=== PATIENT | female | born 1970 | race Caucasian/White ===

== ENCOUNTER 2018-02-18 13:45 | Emergency (ER) | payer BC, OTHER ==
--- NOTE | 2018-02-18 14:04 | Emergency Department Record ---
History of Present Illness - General Chief complaint: GI Bleed Stated complaint: STOMACH CRAMPING,BLOOD IN STOOL Time Seen by Provider: 02/18/18 14:00 Source: Patient Mode of Arrival: Ambulatory Limitations: No limitations - History of Present Illness Initial comments: Pt to ED with complaint of at 2AM today felt urge to have BM. In bathroom at home on toilet felt "lightheaded like I was going to pass out and I got sweaty" . Pts present in bathroom at time. Pt relates passing stool at the time but still had lower abdominal discomfort. In the AM noted bright red blood on the tissue paper after passing soft brown stool. No fever, no nausea/ vomiting. Hx of similar in past with follow up colonoscopy that was normal other than two polyps that were removed by Dr. Membreno. Hx and results per patient. MD complaint: Blood on toilet paper, Blood streaked stool Onset/Timin -: Hour(s) Severity scale (1-10): 8 Consistency: Intermittent Improves with: None Worsens with: None Context: Hemorrhoids Associated Symptoms: Abdominal pain Treatments Prior to Arrival: None - Related Data Home Medications Medication Instructions Recorded Confirmed Last Taken No Home Med [NO HOME MEDS] 02/18/18 02/18/18 Unknown Allergies Allergy/AdvReac Type Severity Reaction Status Date / Time azithromycin AdvReac Intermediate VOMITING Verified 02/18/18 13:57 Travel Screening - Travel/Exposure Within Last 30 Days Have you traveled within the last 30 days?: No - Travel/Exposure Within Last Year Have you traveled outside the [place] in the last year?: No - Additonal Travel Details Have you been exposed to anyone with a communicable illness?: No - Travel Symptoms Symptom Screening: None Review of Systems Constitutional: Denies: Chills, Fever, Night sweats Eyes: Denies: Eye pain, Vision change ENT: Denies: Congestion Respiratory: Denies: Cough, Dyspnea Cardiovascular: Denies: Arrhythmia, Chest pain Endocrine: Denies: Fatigue Gastrointestinal: Reports: As per HPI, Abdominal pain Genitourinary: Denies: Dysuria, Frequency Musculoskeletal: Denies: Back pain Skin: Denies: Rash Neurological: Denies: Abnormal gait, Seizure Psychiatric: Reports: Anxiety. Denies: Depression Hematological/Lymphatic: Denies: Anemia Past Medical History - SOCIAL HISTORY Smoking Status: Current every day smoker Alcohol Use: Occasional Drug Use: None - RESPIRATORY Hx Respiratory Disorders: Yes Hx Bronchitis: Yes (01/2016) Hx Pneumonia: Yes (20+ years ago) - CARDIOVASCULAR Hx Cardio Disorders: No - NEURO Hx Neuro Disorders: No - GI Hx GI Disorders: Yes Hx Abdominal Pain: Yes (Lower abdomen) Hx Nausea/Vomiting: Yes Hx Rectal Bleeding: Yes (09/2015) Comment:: cramping and diarrhea - Hx Genitourinary Disorders: No - ENDOCRINE Hx Endocrine Disorders: No Hx Diabetes: No Hx Thyroid Disease: No - MUSCULOSKELETAL Hx Musculoskeletal Disorders: No - PSYCH Hx Psych Problems: No - HEMATOLOGY/ONCOLOGY Hx Hematology/Oncology Disorders: No Family Medical History Any Significant Family History?: Yes Hx Alcohol Use: Father Hx Heart Disease: Mother Physical Exam - General General Appearance: Alert, Oriented x3, Cooperative Limitations: No limitations - Head Head exam: Atraumatic - Eye Eye exam: Normal appearance - ENT ENT exam: Normal exam Ear exam: Normal external inspection Nasal Exam: Normal inspection Mouth exam: Normal external inspection Teeth exam: Normal inspection Throat exam: Normal inspection - Neck Neck exam: Normal inspection - Respiratory Respiratory exam: Normal lung sounds bilaterally. negative: Rhonchi, Wheezes - Cardiovascular Cardiovascular Exam: Regular rate, Normal rhythm - GI/Abdominal GI/Abdominal exam: Soft, Normal bowel sounds. negative: Guarding, Rebound, Tenderness - Rectal Rectal exam: Other (no external hemorrhoids. + gross bright red blood on gloved finger after exam. no fissue seen. ). negative: Hemorrhoids, Normal rectal tone - exam: Deferred - Extremities Extremities exam: Normal inspection. negative: Tenderness - Back Back exam: Reports: Normal inspection - Neurological Neurological exam: Alert, CN II-XII intact, Normal gait, Oriented X3 - Psychiatric Psychiatric exam: Normal affect, Normal mood - Skin Skin exam: Normal color Course Vital Signs 02/18/18 13:52 Temperature 98.0 F Pulse Rate 91 H Respiratory 18 Rate Blood Pressure 134/86 Pulse Ox 97 - Reevaluation(s) Reevaluation #1: 02/18/18 15:21 pt seen and reviewed studies. HB 13, large stool to right colon. Has established GI for rollow up. Return as needed. Questions answered. Medical Decision Making - Management Options MDM Management: No Additional Work-up Planned - Data Complexity MDM Data: Labs Ordered and/or Reviewed, X-Ray Ordered and/or Reviewed, Independent Visualization of Image, Tracing, or Specimen - Lab Data Result diagrams: 02/18/18 14:17 02/18/18 14:17 - Radiology Data Radiology results: Image reviewed -: Radiology Exam Interpreted by Myself Disposition Disposition: Discharge Clinical Impression: Hematochezia, Constipation Disposition: Home, Self-Care Condition: (1) Good Additional Instructions: Use Miralax over santiago counter as instructed. Increase fluids. Follow up with your family doctor 2-3 days. return to the ER is needed or increased AP, fever, N/V, rectal bleeding. Forms: Patient Portal Access Quality - Quality Measures Quality Measures: N/A - Blood Pressure Screening Does Patient Have Any of the Following: No Blood Pressure Classification: Pre-Hypertensive BP Reading Systolic Measurement: 134 Diastolic Measurement: 86 Screening for High Blood Pressure: < Pre-Hypertensive BP, F/U Documented > [ [id number]] Pre-Hypertensive Follow-up Interventions: Lifestyle modifications. Lifestyle Modification: Dietary Sodium Restriction
[2018-02-18 14:33] LABS: BASO % 0.2 % (0-6); GRAN % 69.8 % (47-80); HEMATOCRIT 40.6 % (35.0-47.0); HEMOGLOBIN 13.3 gm/dl (11.6-16.0); LYMPH % 22.4 % (16-45); MEAN CELL VOLUME 91.2 fl (81-97); MEAN CORPUSCULAR HEMOGLOBIN 29.9 pg (27-33); MEAN CORPUSCULAR HGB CONC 32.8 g/dl (32-36); MEAN PLATELET VOLUME 10.7 fl (7.4-10.4); MONO % 6.6 % (0-9); PLATELET COUNT 241 K/uL (130-400); RED BLOOD COUNT 4.45 M/uL (3.80-5.40); RED CELL DISTRIBUTION WIDTH 13.4 % (11.5-14.5)
[2018-02-18 14:42] LABS: BLOOD UREA NITROGEN 17 mg/dL (6-20); CREATININE 0.8 mg/dL (0.5-0.9); EST GLOMERULAR FILTRATION RATE > 60 mL/min
[2018-02-18 14:43] LABS: TOTAL PROTEIN 7.2 g/dL (6.6-8.7)
[2018-02-18 14:45] LABS: GLUCOSE,RANDOM 108 mg/dL (74-109)
[2018-02-18 14:48] LABS: ALB/GLOB RATIO 1.5 (1.1-1.8); ALBUMIN 4.3 g/dL (4.0-5.0); ALKALINE PHOSPHATASE 122 U/L (35-104); ALT/SGPT 17 U/L (<33); AST/SGOT 16 U/L (10.0-35.0)
[2018-02-18 14:55] LABS: PROTHROMBIN TIME (PATIENT) 10.6 SECONDS (9.5-12.1)
--- NOTE | 2018-02-19 19:52 | RADIOLOGY REPORT ---
EXAM: ABDOMEN 2 VIEW HISTORY: ABDOMINAL PAIN. TECHNIQUE: Supine and upright views of the abdomen were performed. FINDINGS: There is a normal bowel gas pattern. No evidence of obstruction. Mild increased stool in the right hemicolon. No evidence of free air. No radiopaque densities. Mild dextroconvex scoliotic curvature of the lumbar spine. IMPRESSION: NO ACUTE ABDOMINAL DISEASE PROCESS. JOB NUMBER: [id number] MTDD
== END 2018-02-18 15:41 | disposition home or self-care (01) ==
LOC: ER 13:45
DX: K92.1 Melena (principal); K59.00 Constipation, unspecified; R42 Dizziness and giddiness; R10.30 Lower abdominal pain, unspecified; F17.210 Nicotine dependence, cigarettes, uncomplicated
CPT/HCPCS: 74019; 80053; 85025; 85610; 85730; 99283; 99284

== ENCOUNTER 2018-03-14 07:39 | Day surgery (SDC) | payer OTHER ==
[2018-03-14] MEDS ORDERED: LIDOCAINE 2% MDV (20MG/ML) 20ML VIAL IV ONE (07:40)
[2018-03-14] MEDS ORDERED: MIDAZOLAM HCL 2MG/2ML VIAL IV ONE (07:40)
[2018-03-14] MEDS ORDERED: PROPOFOL 10 MG/ML VIAL IV ONE (07:40)
--- NOTE | 2018-03-15 12:30 | Operative Note ---
DATE OF SURGERY: 03/14/2018 OPERATION: COLONOSCOPY. PREOPERATIVE DIAGNOSES: 1. Hematochezia. 2. Abrupt onset of abdominal pain. 3. Prior history of large tubular adenoma. POSTOPERATIVE DIAGNOSES: 1. Hemorrhoids. 2. Otherwise normal exam. PREPARATION QUALITY: Excellent. ESTIMATED BLOOD LOSS: None. SPECIMENS: None. COMPLICATIONS: None. PROCEDURE: After informed consent was obtained from the patient, she was placed in the left lateral decubitus position in the endoscopy suite, sedated and monitored by the department of anesthesia. Digital rectal examination was unremarkable. A well-lubricated [id number] colonoscope was inserted into the rectum and advanced to the cecum. Preparation quality was excellent. The cecum, terminal ileum, ascending colon, transverse colon, descending colon, sigmoid colon, and rectum were free of inflammatory changes, mass lesions, or polyps. J-turn views of the anorectum revealed hemorrhoids. The endoscope was straightened, the rectal ampulla deflated, and the endoscope was removed. RECOMMENDATIONS: At this point, the patient has symptoms that would be suggestive of a bout of ischemic colitis. It seems like she may have had this in the remote past as well. I will have her undergo testing for the possibility she has a hypercoagulable condition. At some point, she probably would benefit from a CTA. She should undergo repeat colonoscopy in 5 years. As always, thank you for allowing me to participate in the healthcare of your patients. CC: DO NOE Olvera
== END 2018-03-14 09:05 | disposition home or self-care (01) ==
LOC: HOP 07:39
PROVIDERS: ATTEND Internal Medicine Gastroenterology
DX: K92.1 Melena (principal); R10.9 Unspecified abdominal pain; Z86.010 Personal history of colon polyps; K64.8 Other hemorrhoids

== ENCOUNTER 2018-12-23 00:55 | Emergency (ER) | payer OTHER ==
[2018-12-23] MEDS ORDERED: ONDANSETRON 4 MG ODT TABLET SL ONE ×2 (01:11→01:54)
--- NOTE | 2018-12-23 01:16 | Emergency Department Record ---
History of Present Illness - General Chief complaint: Vomiting Stated complaint: VOMMITING X 2 HOURS Time Seen by Provider: 12/23/18 01:04 Source: Patient Mode of Arrival: Ambulatory Limitations: No limitations - History of Present Illness Initial comments: The patient is here due to a 2.5 hour hx of nausea, then vomiting and diarrhea. She has vomited multiple times since the onset but is feeling better now. She has had watery diarrhea minimally. There has been no AP prior to the vomiting but now her abdomen feels sore mildly. She denies any fever, chills, CP, dysuria, or bad food exposure. The patient states no one at home is ill with the same issues. MD complaint: Diarrhea, Nausea, Vomiting Onset/Timin -: Hour(s) Description of Vomiting: Food contents, Watery Description of Diarrhea: Water Associated Abdominal Pain: Yes Location: Diffuse Radiation: None Severity scale (1-10): 5 Quality: Cramping Consistency: Intermittent, Other Improves with: None Worsens with: None Associated Symptoms: Nausea/vomiting - Related Data Previous Rx's Medication Instructions Recorded Ondansetron [Zofran Odt] 4 mg SL .Q4-6H PRN #10 tab.rapdis 12/23/18 Allergies Allergy/AdvReac Type Severity Reaction Status Date / Time azithromycin AdvReac Intermediate VOMITING Verified 12/23/18 01:08 Travel Screening - Travel/Exposure Within Last 30 Days Have you traveled within the last 30 days?: No - Travel/Exposure Within Last Year Have you traveled outside the [place] in the last year?: No - Additonal Travel Details Have you been exposed to anyone with a communicable illness?: No - Travel Symptoms Symptom Screening: None Review of Systems Constitutional: Denies: Chills, Fever Eyes: Denies: Eye discharge ENT: Denies: Congestion Respiratory: Denies: Cough, Dyspnea Cardiovascular: Denies: Arrhythmia, Chest pain, Dyspnea on exertion, Edema Endocrine: Denies: Fatigue Gastrointestinal: Reports: Diarrhea, Nausea, Vomiting Genitourinary: Denies: Dysuria Musculoskeletal: Denies: Arthralgia Skin: Denies: Bruising Past Medical History - SOCIAL HISTORY Smoking Status: Current every day smoker Alcohol Use: Occasional Drug Use: None - RESPIRATORY Hx Respiratory Disorders: Yes Hx Bronchitis: Yes (01/2016) Hx Pneumonia: Yes (20+ years ago) - CARDIOVASCULAR Hx Cardio Disorders: No - NEURO Hx Neuro Disorders: No - GI Hx GI Disorders: Yes Hx Abdominal Pain: Yes (Lower abdomen) Hx Nausea/Vomiting: Yes (nausea) Hx Rectal Bleeding: Yes (09/2015 and present) Hx of Polyps: Yes Comment:: cramping and diarrhea - Hx Genitourinary Disorders: No - ENDOCRINE Hx Endocrine Disorders: No Hx Diabetes: No Hx Thyroid Disease: No - MUSCULOSKELETAL Hx Musculoskeletal Disorders: No - PSYCH Hx Psych Problems: No - HEMATOLOGY/ONCOLOGY Hx Hematology/Oncology Disorders: No Family Medical History Any Significant Family History?: No Hx Alcohol Use: Father Hx Heart Disease: Mother Physical Exam - General General Appearance: Alert, Oriented x3, Cooperative, No acute distress - Head Head exam: Atraumatic, Normocephalic, Normal inspection - Eye Eye exam: Normal appearance, PERRL - ENT Throat exam: Normal inspection. negative: Tonsillar erythema, Tonsillar exudate - Neck Neck exam: Normal inspection, Full ROM. negative: Tenderness - Respiratory Respiratory exam: Normal lung sounds bilaterally. negative: Respiratory distress - Cardiovascular Cardiovascular Exam: Regular rate, Normal rhythm, Normal heart sounds - GI/Abdominal GI/Abdominal exam: Soft, Normal bowel sounds. negative: Distended, Rebound, Rigid, Tenderness - Extremities Extremities exam: Normal inspection, Full ROM, Normal capillary refill. negative: Tenderness - Back Back exam: Reports: Normal inspection - Neurological Neurological exam: Alert, Normal gait. negative: Abnormal gait, Motor sensory deficit - Psychiatric Psychiatric exam: negative: Anxious Course Vital Signs 12/23/18 01:00 Temperature 98.0 F Pulse Rate 97 H Respiratory 18 Rate Blood Pressure 117/59 Pulse Ox 98 - Reevaluation(s) Reevaluation #1: The patient is doing better at this time. Her nausea is gone and she has had no vomiting or diarrhea here in the ER. The patient's abdomen is very soft and nontender in all 4 quads. I did offer to order lab work on the patient but did explain that due to her symptoms only being present for 3 hours I strongly doubted that we would find any abnormalities. The patient elected to go home on Zofran and will return if her symptoms recur. 12/23/18 01:50 Disposition Disposition: Discharge Clinical Impression: Vomiting and diarrhea Disposition: Home, Self-Care Condition: (2) Stable Instructions: Acute Nausea and Vomiting (ED) Additional Instructions: Please do not eat or drink for 8 hours then slowly restart your diet. Use the Zofran for nausea. Please return to the ER for any recurrence of the nausea, vomiting, or diarrhea. Prescriptions: Ondansetron [Zofran Odt] 4 mg SL .Q4-6H PRN #10 tab.rapdis PRN Reason: Nausea Forms: Patient Portal Access Time of Disposition: 01:54 Quality - Quality Measures Quality Measures: N/A - Blood Pressure Screening View Details: Yes Does Patient Have Any of the Following: No Blood Pressure Classification: Normal BP Reading Systolic Measurement: 117 Diastolic Measurement: 59 Screening for High Blood Pressure: < Normal BP, F/U Not Required > [G8783]
== END 2018-12-23 02:05 | disposition home or self-care (01) ==
LOC: ER 00:55
DX: R11.2 Nausea with vomiting, unspecified (principal); R19.7 Diarrhea, unspecified; F17.210 Nicotine dependence, cigarettes, uncomplicated
CPT/HCPCS: 99282